=== PATIENT | female | born 1945 | race African-American/Black ===

== ENCOUNTER 2021-07-31 19:15 | Inpatient (IN) | payer MEDICARE, MEDICAID ==
[2021-07-31 19:45] LABS: Hemoglobin 9.8 g/dL (12.0-15.5); Mean Corpuscular HGB CONC 31.5 g/dL (32.0-36.0); Mean Corpuscular Hemoglobin 32.5 pg (27.0-33.0); Platelet Count 271 10x3/uL (150-450); RBC Distribution Width 13.5 % (11.5-14.5); Red Blood Cell (RBC) Count 3.02 10x6/uL (3.90-5.03); White Blood Cell (WBC) Count 22.7 10x3/uL (3.5-10.5)
[2021-07-31] MEDS ORDERED: Acetaminophen 650 MG Suppository ONE (19:45)
[2021-07-31 19:46] LABS: MDiff Complete? YES
[2021-07-31] MEDS ORDERED: cefTRIAXone\\ROCEPHIN 1 GM VIAL ONE (19:46)
[2021-07-31 20:12] LABS: Band 3 % (5-11); Eosinophils 1 % (0-10); Lymphocytes 3 % (21-51); Metamyelocyte 2 % (0-0); Monocytes 5 % (0-10); Neutrophil 86 % (42-75); Platelet Morphology Comment Appears Adequate
[2021-07-31 20:16] LABS: Bilirubin Neg (Negative); Blood, Urine 250 (Negative); Clarity Cloudy (Clear); Glucose, Urine (Dipstick) Normal (Negative); Ketone, Urine Negative (Negative); Leukocyte 500 (Negative); Nitrite Negative (Negative); Protein, Urine (Dipstick) 100 mg/dl (Neg-Trace); Urobilinogen Normal mg/dL (Less than 2); pH, Urine 6.5 (5.0-9.0)
[2021-07-31 20:25] LABS: Bacteria/HPF 2+ HPF (None Seen); RBC/HPF 0-3 HPF (0-3)
[2021-07-31 21:57] LABS: ALT (SGPT) 28 U/L (8-55); AST (SGOT) 45 U/L (5-34); Albumin 2.7 g/dL (3.4-4.8); Alkaline Phosphatase 162 U/L (40-110); Anion Gap 17 mmol/L (10-20); BUN (Urea Nitrogen) 52 mg/dL (9.8-20.1); Calc. Creatinine Clearance 0 mL/min (70-130); Calcium 8.1 mg/dL (7.8-10.44); Carbon Dioxide 17 mmol/L (23-31); Chloride 112 mmol/L (98-107); Globulin 4.5 g/dL (2.4-3.5); Glucose 143 mg/dL (83-110); Potassium 4.9 mmol/L (3.5-5.1); Protein, Total 7.2 g/dL (5.8-8.1); Sodium 141 mmol/L (136-145)
[2021-07-31] MEDS ORDERED: Ketorolac Tromethamine 30 MG/ML VIAL ONE (22:10)
[2021-07-31] MEDS ORDERED: Labetalol HCl 100 MG/20 ML VIAL ONE ×3 (22:10→22:11)
[2021-07-31 22:15] LABS: CKMB 5.5 ng/mL (0-6.6)
[2021-07-31 22:51] LABS: SARS-CoV-2 NAA Rapid Test Not Detected (NotDetected)
[2021-08-01 00:26] VITALS: BMI 31.2
[2021-08-01] MEDS ORDERED: Acetaminophen 650 MG Suppository PR PRN (00:28)
[2021-08-01] MEDS ORDERED: VANCOMYCIN IVPB SCH (00:30)
[2021-08-01] MEDS ORDERED: Cefepime 2 GM in Sodium Chloride 0.9% 100 ML IVPB SCH (00:30)
[2021-08-01] MEDS ORDERED: Vancomycin DOSE BY LEVEL IVPB PRN (00:35)
[2021-08-01] MEDS: Lactated Ringer's 1,000 ML IV SCH ×4 (00:44→17:02)
[2021-08-01] MEDS ORDERED: Vancomycin HCl 500 MG in Sodium Chloride 0.9% 100 ML IVPB SCH (00:45)
[2021-08-01 01:10] LABS: Lactic Acid 1.3 mmol/L (0.5-2.2)
[2021-08-01 07:02] LABS: Anion Gap 13 mmol/L (10-20); BUN (Urea Nitrogen) 51 mg/dL (9.8-20.1); Calc. Creatinine Clearance 26 mL/min (70-130); Carbon Dioxide 17 mmol/L (23-31); Chloride 117 mmol/L (98-107); Glucose 117 mg/dL (83-110); Magnesium 2.1 mg/dL (1.6-2.6); Potassium 5.4 mmol/L (3.5-5.1); Sodium 142 mmol/L (136-145)
[2021-08-01 07:05] LABS: Troponin I 0.062 ng/mL (< 0.028)
[2021-08-01 07:46] LABS: Hemoglobin 8.3 g/dL (12.0-15.5); Mean Corpuscular Hemoglobin 32.3 pg (27.0-33.0); Mean Corpuscular Volume 100.8 fl (81.6-98.3); Mean Platelet Volume 11.6 fl (7.4-10.4); Platelet Count 192 10x3/uL (150-450); RBC Distribution Width 13.6 % (11.5-14.5); Red Blood Cell (RBC) Count 2.57 10x6/uL (3.90-5.03); White Blood Cell (WBC) Count 18.3 10x3/uL (3.5-10.5)
[2021-08-01 07:47] LABS: MDiff Complete? YES
[2021-08-01 07:55] LABS: Band 8 % (5-11); Eosinophils 1 % (0-10); Lymphocytes 13 % (21-51); Monocytes 9 % (0-10); Neutrophil 69 % (42-75)
[2021-08-01 07:58] LABS: Platelet Morphology Comment Appears Adequate; RBC Morphology Normal
[2021-08-01] MEDS ORDERED: hydrALAZINE 20 MG/ML VIAL SLOW IVP PRN (08:51)
[2021-08-01] MEDS ORDERED: Sodium Chloride 0.65% Nasal 44 ML BOT EA NARE PRN (08:51)
[2021-08-01] MEDS ORDERED: Artificial Tear Sol 15 ML BOT EA EYE PRN (08:51)
[2021-08-01] MEDS ORDERED: Bisacodyl 5 MG TAB PO PRN (08:51)
[2021-08-01] MEDS ORDERED: Bisacodyl 10 MG SUPP PR PRN (08:51)
[2021-08-01] MEDS ORDERED: Labetalol HCl 100 MG/20 ML VIAL SLOW IVP PRN (08:51)
[2021-08-01] MEDS ORDERED: Moisturizing Cream (Eucerin) 113 GM JAR TOP PRN (08:51)
[2021-08-01] MEDS ORDERED: Milk Of Magnesia 30 ML UDCUP PER TUBE PRN (08:52)
[2021-08-01] MEDS ORDERED: Dextrose 5% in Water 1,000 ML IV PRN (08:55)
[2021-08-01] MEDS ORDERED: HumaLOG 300 UNITS/3 ML VIAL SC PRN (08:55)
[2021-08-01] MEDS ORDERED: Dextrose 50% Abboject 50 ML SYRINGE SLOW IVP PRN (08:55)
[2021-08-01] MEDS ORDERED: Multivitamin W/ Minerals 1 TAB PER TUBE SCH (09:00)
[2021-08-01] MEDS ORDERED: Enoxaparin Sodium 30 MG/0.3 ML SYRINGE SC SCH (09:00)
[2021-08-01] MEDS ORDERED: Multivits W-Minerals Liquid 15 ML LIQ PER TUBE SCH (09:00)
[2021-08-01] MEDS ORDERED: Metoprolol Tartrate 50 MG TAB PER TUBE SCH (09:00)
[2021-08-01] MEDS ORDERED: Aspirin 325 MG TAB PER TUBE SCH (09:00)
[2021-08-01] MEDS ORDERED: Mag-Al Plus 1200 MG/1200 MG/120 MG/30 ML UDCUP PO PRN (09:41)
[2021-08-01 10:20] LABS: Ferritin 201.68 ng/mL (10-291)
[2021-08-01 15:48] VITALS: BP 129/62; TEMP 99.8
[2021-08-01] MEDS ORDERED: Lactated Ringer's 1,000 ML IV SCH (17:00)
[2021-08-01] MEDS ORDERED: Metoprolol Tartrate 5 MG/5 ML VIAL IVP PRN (20:59)
[2021-08-01] MEDS ORDERED: Atorvastatin Calcium 20 MG TAB PER TUBE SCH (21:00)
[2021-08-03] MEDS ORDERED: Vancomycin HCl 1.5 GM in Sodium Chloride 0.9% 250 ML 300 ML IVPB SCH (01:00)
== END 2021-08-01 17:14 | disposition short-term general hospital (02) | DRG 872 ==
LOC: CSHERS 19:15 → CSHTELE 08-01 00:02
PROVIDERS: ADMIT Family Medicine; ATTEND Family Medicine
DX: A41.9 Sepsis, unspecified organism (principal); N17.9 Acute kidney failure, unspecified; N13.6 Pyonephrosis; I69.351 Hemiplegia and hemiparesis following cerebral infarction affecting right dominant side; G93.40 Encephalopathy, unspecified; R31.9 Hematuria, unspecified; E03.9 Hypothyroidism, unspecified; D53.9 Nutritional anemia, unspecified; E78.5 Hyperlipidemia, unspecified; R53.81 Other malaise; E11.9 Type 2 diabetes mellitus without complications; E78.00 Pure hypercholesterolemia, unspecified; I10 Essential (primary) hypertension; L89.152 Pressure ulcer of sacral region, stage 2; R65.20 Severe sepsis without septic shock; E86.0 Dehydration; I69.391 Dysphagia following cerebral infarction; E86.9 Volume depletion, unspecified; F01.50 Vascular dementia, unspecified severity, without behavioral disturbance, psychotic disturbance, mood disturbance, and anxiety; Z20.822 Contact with and (suspected) exposure to COVID-19; R13.12 Dysphagia, oropharyngeal phase; Z79.82 Long term (current) use of aspirin; Z74.01 Bed confinement status; Z79.899 Other long term (current) drug therapy; Z93.1 Gastrostomy status; I69.392 Facial weakness following cerebral infarction
CPT/HCPCS: 36415; 36416; 51702; 70450; 71045; 74176; 80048; 80053; 81003; 81015; 82553; 82607; 82728; 82746; 83605; 83735; 83880; 84484; 85025; 87040; 87086; 93005; 93010; 94760; 96374; 96375; J0692; J0696; J1650; J1885; J3370; J3490; J7120; U0002

== ENCOUNTER 2022-10-14 16:57 | Emergency (ER) | payer MEDICARE, MEDICAID ==
[~2022-10-14 16:57] MED LIST: MD-Gastroview 120 ML BOT ONE
== END 2022-10-14 20:33 ==
LOC: CSHERS 16:57
DX: K94.23 Gastrostomy malfunction (principal); E11.9 Type 2 diabetes mellitus without complications; E03.9 Hypothyroidism, unspecified; I10 Essential (primary) hypertension; Z86.73 Personal history of transient ischemic attack (TIA), and cerebral infarction without residual deficits; Z79.899 Other long term (current) drug therapy; Z79.82 Long term (current) use of aspirin
CPT/HCPCS: 74018; Q9963

== ENCOUNTER 2023-06-17 09:45 | Inpatient (IN) | payer MEDICARE, MEDICAID ==
[2023-06-17 10:59] LABS: #Basophils 0.04 10x3/uL (0.0-0.2); #Eosinphils 0.49 10x3/uL (0.0-0.5); #Monocytes 0.74 10x3/uL (0.0-1.1); %Basophils 0.7 % (0.0-2.0); %Eosinophils 8.5 % (0.0-6.0); %Lymphocytes 25.5 % (18.0-47.0); %Monocytes 12.8 % (0.0-10.0); %Neutrophils 52.2 % (40.0-75.0); Hematocrit 27.4 % (34.9-44.5); Hemoglobin 8.9 g/dL (12.0-15.5); Mean Corpuscular HGB CONC 32.5 g/dL (32.0-36.0); Mean Corpuscular Hemoglobin 32.7 pg (27.0-33.0); Mean Corpuscular Volume 100.7 fl (81.6-98.3); Mean Platelet Volume 10.6 fl (7.4-10.4); Platelet Count 212 10x3/uL (150-450); RBC Distribution Width 12.1 % (11.5-14.5); Red Blood Cell (RBC) Count 2.72 10x6/uL (3.90-5.03); White Blood Cell (WBC) Count 5.8 10x3/uL (3.5-10.5)
[2023-06-17 11:15] LABS: ALT (SGPT) 18 U/L (8-55); AST (SGOT) 21 U/L (5-34); Albumin 2.7 g/dL (3.4-4.8); Alkaline Phosphatase 207 U/L (40-110); Anion Gap 13 mmol/L (10-20); BUN (Urea Nitrogen) 94 mg/dL (9.8-20.1); Bilirubin, Total 0.2 mg/dL (0.2-1.2); CK (CPK) 134 U/L (29-168); Calc. Creatinine Clearance 0 mL/min (70-130); Calcium 8.5 mg/dL (7.8-10.44); Carbon Dioxide 21 mmol/L (23-31); Chloride 108 mmol/L (98-107); Estimated GFR 18; Globulin 4.3 g/dL (2.4-3.5); Glucose 99 mg/dL (83-110); Lipase 27 U/L (8-78); Sodium 136 mmol/L (136-145)
[2023-06-17] MEDS ORDERED: Sodium Bicarb 50 MEQ/50 ML Abboject 8.4% SYRINGE ONE (11:51)
[2023-06-17] MEDS ORDERED: Calcium Chloride 1 GM/10 ML Abboject SYRINGE ONE (11:51)
[2023-06-17] MEDS ORDERED: Insulin Regular 300 UNITS/3 ML VIAL ONE (11:52)
[2023-06-17 12:07] LABS: Bilirubin Neg (Negative); Blood, Urine 250 (Negative); Clarity Cloudy (Clear); Glucose, Urine (Dipstick) Normal (Negative); Ketone, Urine Negative (Negative); Leukocyte 500 (Negative); Nitrite Negative (Negative); Protein, Urine (Dipstick) 500 mg/dl (Neg-Trace); Urobilinogen Normal mg/dL (Less than 2)
[2023-06-17 13:01] LABS: CAUTI Indications for Culture < 2yrs of age; RBC/HPF 21-50 HPF (0-3); WBC/HPF Greater than 50 HPF (0-3)
[2023-06-17 13:02] LABS: Bacteria/HPF 4+ HPF (None Seen)
[2023-06-17 13:03] LABS: Epithelial Cast 0-3 LPF (None Seen); White Blood Cell Cast 0-3 LPF (None Seen)
[2023-06-17 13:04] LABS: Urine Culture Reflex Yes Yes
[2023-06-17] MEDS ORDERED: cefTRIAXone (ROCEPHIN) 2 GM VIAL ONE (13:17)
[2023-06-17] MEDS ORDERED: Acetaminophen 325 MG TAB PER TUBE PRN (15:33)
[2023-06-17] MEDS ORDERED: Dextrose 50% Abboject 50 ML SYRINGE SLOW IVP PRN (15:37)
[2023-06-17] MEDS ORDERED: Dextrose 5% in Water 1,000 ML IV PRN (15:37)
[2023-06-17] MEDS ORDERED: HumaLOG 300 UNITS/3 ML VIAL SC PRN ×2 (15:37)
[2023-06-17] MEDS ORDERED: Glucagon 1 MG/ML KIT IM PRN (15:37)
[2023-06-17] MEDS ORDERED: Lactated Ringer's 1,000 ML IV SCH (15:45)
[2023-06-17 17:13] LABS: Magnesium 2.5 mg/dL (1.6-2.6); Phosphorus 4.3 mg/dL (2.3-4.7)
[2023-06-17] MEDS: LOKELMA 10 GM PACKET PO SCH (17:35)
[2023-06-17] MEDS: Dextrose 50% Abboject 50 ML SYRINGE SLOW IVP SCH (17:35)
[2023-06-17] MEDS: Sodium Chloride 0.9% 1,000 ML IV SCH (17:36)
[2023-06-17] MEDS: EPOETIN ALFA-EPBX 10,000 UNITS/ML VIAL SC SCH (19:00)
[2023-06-17 20:45] LABS: Anion Gap 15 mmol/L (10-20); BUN (Urea Nitrogen) 84 mg/dL (9.8-20.1); Calc. Creatinine Clearance 21 mL/min (70-130); Calcium 8.9 mg/dL (7.8-10.44); Carbon Dioxide 16 mmol/L (23-31); Chloride 112 mmol/L (98-107); Estimated GFR 20; Glucose 91 mg/dL (83-110); Potassium 5.4 mmol/L (3.5-5.1); Sodium 138 mmol/L (136-145)
[2023-06-17] MEDS: Metoprolol Tartrate 50 MG TAB PER TUBE SCH (21:59)
[2023-06-18] MEDS: Phenytoin 100 MG (4 mL) UDCUP PER TUBE SCH (09:30)
[2023-06-18] MEDS ORDERED: Sodium Bicarbonate 150 MEQ in Dextrose 5% in Water 1,000 ML IV SCH (10:00)
[2023-06-18 10:10] VITALS: BMI 31.8
[2023-06-18 15:39] LABS: #Basophils 0.05 10x3/uL (0.0-0.2); #Eosinphils 0.44 10x3/uL (0.0-0.5); #Monocytes 0.93 10x3/uL (0.0-1.1); #Neutrophils 3.09 10x3/uL (1.5-8.4); %Basophils 0.8 % (0.0-2.0); %Eosinophils 6.8 % (0.0-6.0); %Lymphocytes 30.2 % (18.0-47.0); %Monocytes 14.3 % (0.0-10.0); %Neutrophils 47.6 % (40.0-75.0); Hematocrit 23.1 % (34.9-44.5); Hemoglobin 7.6 g/dL (12.0-15.5); Mean Corpuscular HGB CONC 32.9 g/dL (32.0-36.0); Mean Corpuscular Hemoglobin 33.2 pg (27.0-33.0); Mean Corpuscular Volume 100.9 fl (81.6-98.3); Mean Platelet Volume 10.5 fl (7.4-10.4); Platelet Count 161 10x3/uL (150-450); RBC Distribution Width 12.1 % (11.5-14.5); Red Blood Cell (RBC) Count 2.29 10x6/uL (3.90-5.03); White Blood Cell (WBC) Count 6.5 10x3/uL (3.5-10.5)
[2023-06-18] MEDS: Sodium Bicarbonate 150 MEQ in Dextrose 5% in Water 1,000 ML IV SCH (15:44)
[2023-06-18] MEDS: cefTRIAXone\\ROCEPHIN 1 GM in Sodium Chloride 0.9% 100 ML IVPB SCH (15:44)
[2023-06-18 15:59] LABS: ALT (SGPT) 12 U/L (8-55); AST (SGOT) 17 U/L (5-34); Albumin 2.2 g/dL (3.4-4.8); Alkaline Phosphatase 158 U/L (40-110); Anion Gap 11 mmol/L (10-20); BUN (Urea Nitrogen) 79 mg/dL (9.8-20.1); Bilirubin, Total Less than 0.2 mg/dL (0.2-1.2); Calc. Creatinine Clearance 22 mL/min (70-130); Calcium 8.4 mg/dL (7.8-10.44); Carbon Dioxide 21 mmol/L (23-31); Chloride 113 mmol/L (98-107); Estimated GFR 19; Glucose 90 mg/dL (83-110); Potassium 5.5 mmol/L (3.5-5.1); Protein, Total 6.2 g/dL (5.8-8.1); Sodium 139 mmol/L (136-145)
[2023-06-18] MEDS: Heparin 5,000 UNITS/ML VIAL SC SCH (20:47)
[2023-06-19 04:44] LABS: Anion Gap 13 mmol/L (10-20); BUN (Urea Nitrogen) 73 mg/dL (9.8-20.1); Calc. Creatinine Clearance 23 mL/min (70-130); Calcium 8.3 mg/dL (7.8-10.44); Carbon Dioxide 20 mmol/L (23-31); Chloride 111 mmol/L (98-107); Estimated GFR 20; Glucose 92 mg/dL (83-110); Potassium 5.1 mmol/L (3.5-5.1); Sodium 139 mmol/L (136-145)
[2023-06-19 09:13] LABS: #Basophils 0.03 10x3/uL (0.0-0.2); #Neutrophils 3.76 10x3/uL (1.5-8.4); %Basophils 0.4 % (0.0-2.0); %Eosinophils 6.8 % (0.0-6.0); %Lymphocytes 28.3 % (18.0-47.0); %Monocytes 12.3 % (0.0-10.0); %Neutrophils 51.4 % (40.0-75.0); Hematocrit 23.9 % (34.9-44.5); Hemoglobin 7.8 g/dL (12.0-15.5); Mean Corpuscular HGB CONC 32.6 g/dL (32.0-36.0); Mean Corpuscular Hemoglobin 32.6 pg (27.0-33.0); Mean Platelet Volume 10.8 fl (7.4-10.4); Platelet Count 170 10x3/uL (150-450); Red Blood Cell (RBC) Count 2.39 10x6/uL (3.90-5.03); White Blood Cell (WBC) Count 7.3 10x3/uL (3.5-10.5)
[2023-06-19] MEDS: Aspirin 81 mg Enteric Coated Tablet PO SCH (09:51)
[2023-06-19] MEDS: Sodium Bicarbonate 150 MEQ in Dextrose 5% in Water 1,000 ML IV SCH (09:55)
[2023-06-19] MEDS: hydrALAZINE 20 MG/ML VIAL SLOW IVP PRN (18:25)
[2023-06-20 06:05] LABS: #Basophils 0.04 10x3/uL (0.0-0.2); #Eosinphils 0.33 10x3/uL (0.0-0.5); #Monocytes 0.87 10x3/uL (0.0-1.1); #Neutrophils 4.05 10x3/uL (1.5-8.4); %Basophils 0.6 % (0.0-2.0); %Eosinophils 4.8 % (0.0-6.0); %Lymphocytes 22.1 % (18.0-47.0); %Monocytes 12.7 % (0.0-10.0); %Neutrophils 59.4 % (40.0-75.0); Hematocrit 24.1 % (34.9-44.5); Hemoglobin 8.1 g/dL (12.0-15.5); Mean Corpuscular HGB CONC 33.6 g/dL (32.0-36.0); Mean Corpuscular Hemoglobin 33.1 pg (27.0-33.0); Mean Corpuscular Volume 98.4 fl (81.6-98.3); Mean Platelet Volume 10.7 fl (7.4-10.4); Platelet Count 166 10x3/uL (150-450); RBC Distribution Width 12.2 % (11.5-14.5); Red Blood Cell (RBC) Count 2.45 10x6/uL (3.90-5.03); White Blood Cell (WBC) Count 6.8 10x3/uL (3.5-10.5)
[2023-06-20 06:16] LABS: Anion Gap 13 mmol/L (10-20); BUN (Urea Nitrogen) 63 mg/dL (9.8-20.1); Calc. Creatinine Clearance 22 mL/min (70-130); Calcium 8.7 mg/dL (7.8-10.44); Carbon Dioxide 25 mmol/L (23-31); Chloride 107 mmol/L (98-107); Estimated GFR 19; Glucose 110 mg/dL (83-110); Potassium 4.2 mmol/L (3.5-5.1); Sodium 141 mmol/L (136-145)
[2023-06-21 05:34] LABS: #Basophils 0.04 10x3/uL (0.0-0.2); #Eosinphils 0.44 10x3/uL (0.0-0.5); #Monocytes 0.83 10x3/uL (0.0-1.1); #Neutrophils 3.29 10x3/uL (1.5-8.4); %Basophils 0.6 % (0.0-2.0); %Lymphocytes 26.9 % (18.0-47.0); %Monocytes 13.1 % (0.0-10.0); %Neutrophils 51.9 % (40.0-75.0); Hematocrit 23.1 % (34.9-44.5); Hemoglobin 7.6 g/dL (12.0-15.5); Mean Corpuscular HGB CONC 32.9 g/dL (32.0-36.0); Mean Corpuscular Hemoglobin 33.2 pg (27.0-33.0); Mean Corpuscular Volume 100.9 fl (81.6-98.3); Mean Platelet Volume 10.6 fl (7.4-10.4); Platelet Count 164 10x3/uL (150-450); RBC Distribution Width 12.4 % (11.5-14.5); Red Blood Cell (RBC) Count 2.29 10x6/uL (3.90-5.03); White Blood Cell (WBC) Count 6.3 10x3/uL (3.5-10.5)
[2023-06-21 05:48] LABS: Anion Gap 14 mmol/L (10-20); BUN (Urea Nitrogen) 60 mg/dL (9.8-20.1); Calc. Creatinine Clearance 21 mL/min (70-130); Calcium 8.6 mg/dL (7.8-10.44); Carbon Dioxide 21 mmol/L (23-31); Chloride 107 mmol/L (98-107); Estimated GFR 18; Glucose 95 mg/dL (83-110); Potassium 4.4 mmol/L (3.5-5.1); Sodium 138 mmol/L (136-145)
[2023-06-21] MEDS: Aspirin Chewable 81 MG TAB PER TUBE SCH (09:26)
[2023-06-21] MEDS: Labetalol HCl 100 MG/20 ML VIAL SLOW IVP PRN (10:38)
[2023-06-21] MEDS: Sodium Bicarbonate Tab 325 MG TAB PO SCH (15:04)
[2023-06-21] MEDS: hydrALAZINE 25 MG TAB PO SCH (21:36)
[2023-06-22 03:57] LABS: #Basophils 0.03 10x3/uL (0.0-0.2); #Eosinphils 0.41 10x3/uL (0.0-0.5); #Monocytes 0.98 10x3/uL (0.0-1.1); #Neutrophils 4.82 10x3/uL (1.5-8.4); %Basophils 0.4 % (0.0-2.0); %Eosinophils 5.1 % (0.0-6.0); %Lymphocytes 21.8 % (18.0-47.0); %Monocytes 12.2 % (0.0-10.0); %Neutrophils 60.3 % (40.0-75.0); Hematocrit 23.6 % (34.9-44.5); Hemoglobin 7.4 g/dL (12.0-15.5); Mean Corpuscular HGB CONC 31.4 g/dL (32.0-36.0); Mean Corpuscular Hemoglobin 32.5 pg (27.0-33.0); Mean Corpuscular Volume 103.5 fl (81.6-98.3); Mean Platelet Volume 10.4 fl (7.4-10.4); Platelet Count 185 10x3/uL (150-450); RBC Distribution Width 12.4 % (11.5-14.5); Red Blood Cell (RBC) Count 2.28 10x6/uL (3.90-5.03)
[2023-06-22 04:01] LABS: Anion Gap 11 mmol/L (10-20); BUN (Urea Nitrogen) 62 mg/dL (9.8-20.1); Calc. Creatinine Clearance 21 mL/min (70-130); Calcium 8.7 mg/dL (7.8-10.44); Carbon Dioxide 24 mmol/L (23-31); Chloride 106 mmol/L (98-107); Estimated GFR 17; Glucose 94 mg/dL (83-110); Potassium 4.4 mmol/L (3.5-5.1); Sodium 137 mmol/L (136-145)
[2023-06-22 05:11] VITALS: BMI 33.1
[2023-06-22 12:31] VITALS: BP 130/60; TEMP 98.2
== END 2023-06-22 13:25 | disposition home or self-care (01) | DRG 683 ==
LOC: CSHERS 09:45 → CSHERHOLD 13:38 → CSHTELE 15:49
PROVIDERS: ADMIT Family Medicine; ATTEND Internal Medicine
DX: N17.9 Acute kidney failure, unspecified (principal); E44.0 Moderate protein-calorie malnutrition; N39.0 Urinary tract infection, site not specified; E87.20 Acidosis, unspecified; E87.5 Hyperkalemia; E03.9 Hypothyroidism, unspecified; E78.00 Pure hypercholesterolemia, unspecified; E78.5 Hyperlipidemia, unspecified; Z79.899 Other long term (current) drug therapy; Z79.82 Long term (current) use of aspirin; N18.4 Chronic kidney disease, stage 4 (severe); E11.22 Type 2 diabetes mellitus with diabetic chronic kidney disease; D63.1 Anemia in chronic kidney disease; I12.9 Hypertensive chronic kidney disease with stage 1 through stage 4 chronic kidney disease, or unspecified chronic kidney disease; F03.90 Unspecified dementia, unspecified severity, without behavioral disturbance, psychotic disturbance, mood disturbance, and anxiety; E88.09 Other disorders of plasma-protein metabolism, not elsewhere classified; D50.9 Iron deficiency anemia, unspecified; Z68.23 Body mass index [BMI] 23.0-23.9, adult
CPT/HCPCS: 36415; 36416; 71045; 74018; 76770; 80048; 80053; 81001; 82550; 83690; 83735; 83880; 84100; 84484; 85025; 87086; 93005; 97139; J0360; J0696; J1644; J1815; J3490; J7050; J7070; J7999; Q5106